=== PATIENT | female | born 1980 | race Caucasian/White ===

== ENCOUNTER 2021-08-03 09:53 | Observation (INO) ==
[2021-08-03 11:07] LABS: Basophils % 0.2 %; Hematocrit 37.2 % (35.3-44.9); Hemoglobin 12.4 g/dL (11.5-15.4); Immature Granulocytes % 0.5 % (0-4); Lymphocytes # 0.6 K/mcL (0.6-4.6); Lymphocytes % 15.6 %; Mean Corpuscular HGB Conc 33.3 g/dL (31.6-35.5); Mean Corpuscular Hemoglobin 30.1 pg (28.0-33.3); Mean Corpuscular Volume 90.3 fL (83.0-100.0); Mean Platelet Volume 9.7 fL (9.4-12.4); Monocytes # 0.3 K/mcL (0.0-1.3); Monocytes % 7.7 %; Platelet Count 214 K/mcL (140-400); Red Blood Count 4.12 M/mcL (3.82-4.97); Red Cell Distribution Width 11.7 % (11.5-14.5)
[2021-08-03 11:14] LABS: Prothrombin Time 11.6 Seconds (9.4-12.1)
[2021-08-03 11:30] LABS: Carbon Dioxide 23 mEq/L (23-29); Troponin I < 0.03 ng/mL (< 0.04)
[2021-08-03 12:44] LABS: BUN/Creatinine Ratio 14 (6-26); Blood Urea Nitrogen 10 mg/dL (6-20); Calcium 9.2 mg/dL (8.6-10.3); Chloride 108 mEq/L (98-107); Glucose 112 mg/dL (70-105); Osmolality,Calculated 290 (280-300); Potassium 4.1 mEq/L (3.5-5.1); Sodium 140 mEq/L (136-145); eGFR For African Americans > 60 (> 60); eGFR For Non-African Americans > 60 (> 60)
[2021-08-03] MEDS ORDERED: Ondansetron 4 MG/2 ML VIAL IVP PRN (13:20)
[2021-08-03] MEDS ORDERED: Acetaminophen 325 MG TABLET PO PRN (13:20)
[2021-08-03] MEDS ORDERED: *HR* HYDROcodone/Acet 5/325 mg TABLET PO PRN (13:20)
[2021-08-03 22:43] VITALS: TEMP 98.1
[2021-08-04 02:30] VITALS: O2SAT 97
[2021-08-04 02:48] LABS: Basophils % 0.6 %; Eosinophils # 0.1 K/mcL (0.0-0.6); Eosinophils % 1.7 %; Hematocrit 36.9 % (35.3-44.9); Hemoglobin 12.4 g/dL (11.5-15.4); Immature Granulocytes % 0.2 % (0-4); Lymphocytes # 1.3 K/mcL (0.6-4.6); Lymphocytes % 28.5 %; Mean Corpuscular HGB Conc 33.6 g/dL (31.6-35.5); Mean Corpuscular Hemoglobin 30.5 pg (28.0-33.3); Mean Corpuscular Volume 90.9 fL (83.0-100.0); Mean Platelet Volume 10.7 fL (9.4-12.4); Monocytes # 0.4 K/mcL (0.0-1.3); Monocytes % 7.9 %; Neutrophils # 2.9 K/mcL (1.6-8.9); Platelet Count 224 K/mcL (140-400); Red Blood Count 4.06 M/mcL (3.82-4.97); Red Cell Distribution Width 11.7 % (11.5-14.5); Segmented Neutrophils % 61.1 %; White Blood Count 4.7 K/mcL (4.3-11.1)
[2021-08-04 02:55] LABS: INR 1.1
[2021-08-04 03:19] LABS: BUN/Creatinine Ratio 15 (6-26); Blood Urea Nitrogen 9 mg/dL (6-20); Calcium 9.1 mg/dL (8.6-10.3); Carbon Dioxide 25 mEq/L (23-29); Chloride 103 mEq/L (98-107); Chol/HDL Ratio 4.4 (0-4.9); Cholesterol 208 mg/dL (< 200); Glucose 86 mg/dL (70-105); HDL Cholesterol 47 mg/dL (40-59); LDL Cholesterol,Calculated 149 mg/dL (< 100); Magnesium 2.1 mg/dL (1.6-2.6); Osmolality,Calculated 284 (280-300); Phosphorous 3.1 mg/dL (2.7-4.5); Potassium 3.9 mEq/L (3.5-5.1); Sodium 138 mEq/L (136-145); Triglycerides 59 mg/dL (< 150); eGFR For African Americans > 60 (> 60); eGFR For Non-African Americans > 60 (> 60)
[2021-08-04] MEDS ORDERED: Regadenoson 0.4 MG/5 ML SYRINGE IVP ONE (06:25)
[2021-08-04] MEDS ORDERED: Aspirin 81 MG TAB.CHEW PO SCH (09:00)
[2021-08-04 11:17] VITALS: BP 117/82; PULSE 79
[2021-08-04 11:56] LABS: Estimated Average Glucose 111 mg/dl; Hemoglobin A1C 5.5 %
== END 2021-08-04 13:49 | disposition home or self-care (01) ==
LOC: 3BNU 09:53 → EMEROOARM 09:53 → SUATTDRO 13:23 → 3BNU 15:14
PROVIDERS: ADMIT Hospitalist; ATTEND Internal Medicine